=== PATIENT | male | born 1950 | race Caucasian/White ===

== ENCOUNTER 2023-04-11 07:10 | Day surgery (SDC) | payer OTHER, MEDICARE ==
[2023-04-04 15:54] VITALS: BMI 23.3
[2023-04-11 07:31] VITALS: RESP 18; TEMP 97
[2023-04-11] MEDS ORDERED: PROPOFOL 20 ML ONE ×2 (08:40→10:35)
[2023-04-11] MEDS ORDERED: ceFAZolin SODIUM 1 GM VIAL ONE ×2 (08:40→09:21)
[2023-04-11] MEDS ORDERED: MIDAZOLAM HCL 2 MG/2 ML SINGLE DOSE VIAL ONE (08:40)
[2023-04-11] MEDS ORDERED: CELECOXIB 200 MG CAPSULE ONE (08:45)
[2023-04-11] MEDS ORDERED: oxyCODONE HCL 5 MG TABLET PO PRN (09:17)
[2023-04-11] MEDS ORDERED: ONDANSETRON 4 MG/2 ML VIAL IVPUSH PRN (09:17)
[2023-04-11] MEDS ORDERED: ERYTHROMYCIN 0.5% OPHTHALMIC OINTMENT 3.5 GM TUBE ONE (09:21)
[2023-04-11] MEDS ORDERED: POVIDONE-IODINE 5% OPHTHALMIC PREP 30 ML SOLUTION ONE (09:22)
[2023-04-11] MEDS ORDERED: TETRACAINE 0.5% OPHTH SOLN 2 ML BOTTLE ONE (09:22)
[2023-04-11] MEDS ORDERED: LIDOCAINE 1%-EPI 1:100,000 30 ML MDV IJ ONE (09:22)
[2023-04-11] MEDS ORDERED: BUPIVACAINE HCL/PF 0.5% (5MG/ML) 10 ML VIAL ONE (09:22)
[2023-04-11] MEDS ORDERED: LACTATED RINGERS SOLUTION 1,000 ML IV SCH (09:30)
[2023-04-11] MEDS ORDERED: ONDANSETRON 4 MG/2 ML VIAL ONE (10:22)
[2023-04-11] MEDS ORDERED: DEXAMETHASONE SOD PHOSPHATE 4 MG/1 ML VIAL ONE (10:22)
[2023-04-11 12:55] VITALS: BP 135/6; PULSE 62
== END 2023-04-11 12:58 | disposition home or self-care (01) ==
LOC: FASU 07:10
PROVIDERS: ATTEND Ophthalmology
PROC: 0KR Muscles, Replacement (ICD-10-PCS; 2023-04-11)
PROC: 08SR0ZZ Reposition Left Lower Eyelid, Open Approach (ICD-10-PCS; principal; 2023-04-11 10:25)
DX: C44.1192 Basal cell carcinoma of skin of left lower eyelid, including canthus (principal)
CPT/HCPCS: 94760